=== PATIENT | male | born 1985 | race Caucasian/White ===

== ENCOUNTER 2016-11-09 10:58 | Emergency (ER) | payer BC ==
[2016-11-09] MEDS ORDERED: Lidocaine 1% 30 ML SDV INJECT ONE (11:24)
[2016-11-09 11:42] VITALS: BP 116/57
--- NOTE | 2016-11-09 12:54 | EDM.PDOC ---
ED HPI GENERAL MEDICAL PROBLEM - General Chief Complaint: Laceration Stated Complaint: CUT FINGER Time Seen by Provider: 11/09/16 11:20 Source of Information: Reports: Patient History Limitations: Reports: No Limitations - History of Present Illness INITIAL COMMENTS - FREE TEXT/NARRATIVE: Patient doing some wood work on a table saw. The wood did grab and pulled his right thumb and index finger into the blade. Current on his tetanus. Fingers are intact. No other complaints. Neurovascular intact Onset: Today Onset Date: 11/09/16 Onset Time: 10:00 Location: Reports: Upper Extremity, Right Quality: Reports: Ache Severity: Moderate Improves with: Reports: Cold Therapy, Other (pressure) Worsens with: Reports: Movement Associated Symptoms: Reports: No Other Symptoms Right 1-Thumb Pain Score (Numeric/FACES): 8 - Related Data Allergies Allergy/AdvReac Type Severity Reaction Status Date / Time No Known Allergies Allergy Verified 11/09/16 11:30 Home Meds: Home Meds . [No Known Home Meds] 11/09/16 [History] ED ROS GENERAL - Review of Systems Review Of Systems: ROS reveals no pertinent complaints other than HPI. ED EXAM, SKIN/RASH Exam: See Below Exam Limited By: No Limitations General Appearance: Alert, WD/WN, No Apparent Distress Eye Exam: Bilateral Eye: EOMI, PERRL Head: Atraumatic, Normocephalic Extremities: Normal Inspection, Normal Range of Motion Neurological: Alert, Oriented, CN II-XII Intact Skin: Wound/Incision (right thumb laceration, right index finger skin flap) ED SKIN PROCEDURES - Laceration/Wound Repair Right Finger Lac/Wound length In cm: 2.5 (right thumb) Appearance: Irregular Distal NVT: Neuro & Vascular Intact, No Tendon Injury Local Anesthesia - Lidocaine (Xylocaine): 1% Plain Local Anesthetic Volume: 3cc Skin Prep: Chlorhexidine (Hibiciens) Exploration/Debridement/Repair: Wound Explored, in a Bloodless Field, No Foreign Material Found Closed with: Sutures Suture Size: 4-0 Suture Type: Interrupted (2 interrupted at lateral nailbed site, ), Running Tetanus Status Addressed: Yes Complications: No Right Distal Finger Lac/Wound length In cm: 1.5 (skin flap) Appearance: Linear Distal NVT: Neuro & Vascular Intact Closed with: Dermabond Course - Vital Signs Last Recorded V/S: Last Vital Signs Temp 36.1 C 11/09/16 11:05 Pulse 67 11/09/16 11:05 Resp 20 11/09/16 11:05 BP 116/57 L 11/09/16 11:05 Pulse Ox - Orders/Labs/Meds Meds: Medications Discontinued Medications Generic Name Dose Route Start Last Admin Trade Name Yoli PRN Reason Stop Dose Admin Lidocaine HCl 30 ml 11/09/16 11:24 Xylocaine-Mpf 1% INJECT 11/09/16 11:25 ONETIME ONE Departure - Departure Time of Disposition: 13:01 Disposition: Home, Self-Care 01 Condition: Good Clinical Impression: Laceration - Discharge Information Instructions: Stitches, Funmi, or Adhesive Wound Closure, [id number], Nail Bed Injury, [id number], Laceration Care, Adult, [id number] Forms: ED Department Discharge Additional Instructions: Keep your wound clean and dry Have sutures removed in 10-14 days May shower and wash with soap and water, do not submerge in any water including pools, dish soap, hot tub, any body of water Watch for signs of infection including fever over 101.5 f, chills, increased swelling and redness to the site, site becomes hot to the touch, red streak Dermabond site will eventually dissolve on its own Call with any questions or concerns - Problem List & Annotations (1) Laceration SNOMED Code(s): 735636780 Code(s): SSV1256 - Status: Acute Priority: Low Current Visit: Yes - Problem List Review Problem List Initiated/Reviewed/Updated: Yes - Assessment/Plan Assessment:: laceration of right thumb and index finger Plan: Keep your wound clean and dry Have sutures removed in 10-14 days May shower and wash with soap and water, do not submerge in any water including pools, dish soap, hot tub, any body of water Watch for signs of infection including fever over 101.5 f, chills, increased swelling and redness to the site, site becomes hot to the touch, red streak Dermabond site will eventually dissolve on its own Call with any questions or concerns
== END 2016-11-09 13:05 | disposition home or self-care (01) ==
LOC: VM.ED 10:58
DX: S61.011A Laceration without foreign body of right thumb without damage to nail, initial encounter (principal); S61.210A Laceration without foreign body of right index finger without damage to nail, initial encounter; W27.0XXA Contact with workbench tool, initial encounter; Y99.0 Civilian activity done for income or pay
CPT/HCPCS: 12001; 12002; 99283